=== PATIENT | male | born 1965 | race Caucasian/White ===

== ENCOUNTER 2017-03-11 00:46 | Emergency (ER) | payer OTHER ==
--- NOTE | 2017-03-11 01:41 | EDM.PDOC ---
ED HPI GENERAL MEDICAL PROBLEM - General Chief Complaint: Skin Complaint Stated Complaint: Skin Issues Time Seen by Provider: 03/11/17 01:00 Source of Information: Reports: Patient History Limitations: Reports: No Limitations - History of Present Illness INITIAL COMMENTS - FREE TEXT/NARRATIVE: Patient reports history of abdominal pain with bilateral inguinal hernia repair by the [facility] in [place] in November. He has begun to have additional abdominal pain again recently. States that over the last few weeks he has been noticing parasites/worms coming out of his skin. No known history of drug abuse of psychological difficulties. He states his left him this morning due to this problem. Denies recent livestock contact, does own a cat. Does admit to marijuana and meth use. Did state that he pulled a worm out and that it went back into his fingers. Onset: Gradual Duration: Getting Worse Location: Reports: Other (generalized) Severity: Moderate Improves with: Reports: None Worsens with: Reports: None Associated Symptoms: Reports: No Other Symptoms - Related Data Allergies Allergy/AdvReac Type Severity Reaction Status Date / Time No Known Allergies Allergy Verified 03/11/17 00:47 Home Meds: Home Meds . [No Known Home Meds] 03/11/17 [History] ED ROS GENERAL - Review of Systems Review Of Systems: See Below Constitutional: Reports: No Symptoms HEENT: Reports: No Symptoms Respiratory: Reports: No Symptoms Cardiovascular: Reports: No Symptoms Endocrine: Reports: No Symptoms GI/Abdominal: Reports: No Symptoms : Reports: No Symptoms Musculoskeletal: Reports: No Symptoms Skin: Reports: Wound Neurological: Reports: No Symptoms Psychiatric: Reports: No Symptoms Hematologic/Lymphatic: Reports: No Symptoms Immunologic: Reports: No Symptoms ED EXAM, SKIN/RASH Exam: See Below Exam Limited By: Other (questionable accuracy due to present use of drugs) General Appearance: Alert, WD/WN, Anxious, Mild Distress Eye Exam: Bilateral Eye: EOMI, PERRL Ears: Normal TMs Throat/Mouth: Normal Inspection, Normal Oropharynx Head: Atraumatic, Normocephalic Neck: Normal Inspection Respiratory/Chest: No Respiratory Distress, Lungs Clear, Normal Breath Sounds Cardiovascular: Normal Peripheral Pulses, Regular Rate, Rhythm, No Edema GI/Abdominal: Normal Bowel Sounds, Soft, Non-Tender Extremities: Normal Inspection, Normal Range of Motion, Non-Tender, No Pedal Edema Neurological: Alert, Oriented, CN II-XII Intact, Normal Cognition, Normal Gait, No Motor/Sensory Deficits Psychiatric: Normal Affect, Anxious Skin: Wound/Incision (multiple circular wounds in varying stages of healing. These are located on the chest, abdomen, arms, legs) Location, Skin: Chest, Abdomen, Upper Extremity, Right, Upper Extremity, Left, Lower Extremity, Right, Lower Extremity, Left Characteristics: Erythematous Associated features: Inflammation, Crusting Comments: No parasites observed, questionable "meth mites" due to his history and comment that the worms went back into his fingers after he removed them from his leg Course - Vital Signs Last Recorded V/S: Last Vital Signs Temp 35.4 C 03/11/17 00:50 Pulse 95 03/11/17 02:30 Resp 20 03/11/17 02:30 BP 150/72 H 03/11/17 02:30 Pulse Ox 95 03/11/17 02:30 - Orders/Labs/Meds Orders: Active Orders 24 hr Category Date Time Status AMPHET/METH EXT CONF (GCMS) Urgent Lab 03/11/17 01:32 Received CARBOXY-THC BY GC/MS Stat Lab 03/11/17 01:32 Received GIARDIA ANTIGEN BY IMMUNOASSAY [MREF] Urgent Lab 03/11/17 01:41 Uncollected OVA & PARASITES BY IMMUNOASSAY [MREF] Stat Lab 03/11/17 01:41 Uncollected Labs: Laboratory Tests 03/11/17 Range/Units 01:32 Urine Opiates Screen Negative (NEGATIVE) Ur Buprenorphine Scrn Negative (NEGATIVE) Ur Oxycodone Screen Negative (NEGATIVE) Urine Methadone Screen Negative (NEGATIVE) Ur Barbituates Screen Negative (NEGATIVE) Ur Tricyclics Screen Negative (NEGATIVE) Ur Amphetamines Screen Positive H (NEGATIVE) U Methamphetamines Scrn Positive H (NEGATIVE) Urine MDMA Screen Negative (NEGATIVE) U Benzodiazepines Scrn Negative (NEGATIVE) Urine Cocaine Screen Negative (NEGATIVE) U Marijuana (THC) Screen Positive H (NEGATIVE) Departure - Departure Time of Disposition: 03:45 Disposition: Home, Self-Care 01 Condition: Fair Clinical Impression: Methamphetamine abuse - Discharge Information Instructions: Stimulant Use Disorder-Methamphetamines, Finding Treatment for Addiction, Hookworm Infection, Scabies, Adult Referrals: PCP,Unobtain [Primary Care Provider] - Forms: ED Department Discharge - My Orders Last 24 Hours: My Active Orders 03/11/17 01:32 AMPHET/METH EXT CONF (GCMS) Urgent CARBOXY-THC BY GC/MS Stat 03/11/17 01:41 GIARDIA ANTIGEN BY IMMUNOASSAY [MREF] Urgent OVA & PARASITES BY IMMUNOASSAY [MREF] Stat - Assessment/Plan Last 24 Hours: My Active Orders 03/11/17 01:32 AMPHET/METH EXT CONF (GCMS) Urgent CARBOXY-THC BY GC/MS Stat 03/11/17 01:41 GIARDIA ANTIGEN BY IMMUNOASSAY [MREF] Urgent OVA & PARASITES BY IMMUNOASSAY [MREF] Stat
[2017-03-11 07:37] VITALS: BP 150/72
== END 2017-03-11 03:45 | disposition home or self-care (01) ==
LOC: VM.ED 00:46
DX: F15.10 Other stimulant abuse, uncomplicated (principal)
CPT/HCPCS: 80305; 80349; 99285; G0480